=== PATIENT | female | born 1990 | race Caucasian/White ===

== ENCOUNTER 2021-06-19 11:39 | Emergency (ER) | payer OTHER, SELFPAY ==
[2021-06-19 12:11] VITALS: BP 99/61; PULSE 92; RESP 18; TEMP 37.1; O2SAT 96; BMI 26.6
[2021-06-19] MEDS: Lidocaine 4 % Cream KIT 1 APPL TOPICAL (13:34)
--- NOTE | 2021-06-19 13:44 | ED_ITS ---
HPI - Extremity Problem General Chief complaint: Extremity Problem Stated complaint: ARM INFECTION Time Seen by Provider: 06/19/21 13:21 Source: patient and family Mode of arrival: ambulatory Limitations: no limitations History of Present Illness HPI Narrative: Right arm swelling, redness and pain for the last 3 days. She tells me she has a history of recurrent abscesses. She did try to do warm compresses and is draining a little bit but continued swelling and pain. No fevers or chills. She does have a history of IV drug abuse but is currently on methadone and not using any IV drugs Related Data Previous Rx's Medication Instructions Recorded doxycycline monohydrate 100 mg PO BID #20 cap 06/19/21 Allergies Allergy/AdvReac Type Severity Reaction Status Date / Time brompheniramine Allergy Anaphylaxis Verified 06/19/21 12:17 [From Dimetapp (brompheniramine-PPA)] phenylpropanolamine Allergy Anaphylaxis Verified 06/19/21 12:17 [From Dimetapp (brompheniramine-PPA)] Review of Systems Review of Systems: Yes all other systems are reviewed and are negative Constitutional: Constitutional: Reports no additional constitutional complaints, Denies body ache(s), Denies chills, Denies fever(s), Denies headache (s) and Denies weakness Eyes: Eyes: Reports no additional eye complaints and Denies change in vision ENT: Reports system reviewed and no additional complaints, except as documented, Denies dizziness, Denies headache(s), Denies nasal congestion, Denies nasal discharge and Denies neck pain Cardiovascular: Cardiovascular: Reports no additional cardiovascular complaints, Denies chest pain, Denies leg edema and Denies dyspnea Respiratory: Respiratory: Reports no additional respiratory complaints, Denies cough and Denies dyspnea Gastrointestinal: Gastrointestinal: Reports no additional gastrointestinal complaints, Denies abdominal pain, Denies diarrhea, Denies nausea and Denies vomiting Genitourinary: Genitourinary: Reports no additional female genitourinary complaints and Denies urinary incontinence Musculoskeletal: Musculoskeletal: Reports no additional musculoskeletal complaints, Denies back pain, Denies arthralgias, Denies joint swelling, Denies neck pain, Denies numbness and Denies tingling Integumentary/Breasts: Skin/Breast: Reports system reviewed and no additional complaints, except as docu, Reports swelling, Reports erythema and Denies rash Neurologic: Reports system reviewed and no additional complaints, except as documented, Denies Abnormal speech present, Denies dizziness, Denies headache(s), Denies numbness, Denies tingling and Denies weakness PMFSH Past Medical History Attestation statement: The following information was validated with the patient. Source: old records reviewed and nursing notes reviewed Medical History No known health problems Social History Social History Advance Directives: Yes Advance Directives Information Provided: No Advance Directives on File: No Physical Exam Vital Signs: Vital Signs: Last Vital Signs Temp 98.8 F 06/19/21 12:11 Pulse 92 06/19/21 12:11 Resp 18 06/19/21 12:11 BP 99/61 06/19/21 12:11 Pulse Ox 96 06/19/21 12:11 Body Mass Index 26.6 Const: General: cooperative, healthy appearing, comfortable and no acute distress Orientation/consciousness: patient oriented x3 Limitations: no limitations HENMT: Head: Yes normal to inspection Ears: hearing grossly normal bilaterally General nose exam: Normal external nose present Face and sinus: Yes normal facial exam Mouth: Normal oral and palatal mucosa present Throat: Yes posterior oropharynx normal Eyes: General: appearance normal, both eyes and all related structures Pupils: Equal, round and reactive pupils present Neck: Neck: Yes normal visual inspection Chest: Chest palpation & inspection: normal inspection of the chest Resp: Effort & Inspection: normal respiratory effort Auscultation: clear to auscultation bilaterally Cardio: Rate: regular rate Rhythm: regular rhythm Peripheral pulses: Peripheral pulses 2+ throughout GI: Inspection: Yes normal to inspection Palpation (GI): Soft to palpation and nontender Auscultation: normal bowel sounds Back/Spine/Pelvis: Thoracic/Lumbar Spine: thoracic and lumbar spine normal to inspection Skin: General skin exam: no rashes or lesions noted Neuro: General: patient oriented x3, no focal motor deficits and normal sensation to monofilament Cranial nerves: Yes Equal, round and reactive pupils present Cognition (Neuro): normal cognition Speech: No Abnormal speech present Gait exam (Neuro): Normal gait present Motor exam (neuro): 5/5 motor strength present throughout Extrem: Other: To the right forearm there is a central area with an abscess present with induration, fluctuance, warmth and tenderness with surrounding er ythema. The erythema is not circumferential. Distal pulses palpated. Sensation is normal General: Yes normal to inspection Course Course Course Narrative: Right forearm abscess with surrounding cellulitis. Will require I&D, antibiotics for home. 1445-see I&D note.. Packing placed. Patient to return in 48 hours for packing removal and wound check. Reviewed worrisome signs and symptoms such as increasing redness, swelling or fever. Comfortable discharge home Procedures Abscess I/D Site: upper extremity Side (if applicable): right Local Anesthetic: lidocaine 2% Amount of anesthesia used (mL): 3 Technique: incised with blade Sent for culture/gram staining?: No Irrigation: No Packing used?: iodoform MDM - Extremity (Nontraumatic) Medical Records Attestation: I reviewed the patient's medical records. Lab Data Attestation: I reviewed the patient's lab results. Discharge Plan Discharge Clinical Impression: Cellulitis, Abscess Patient Disposition: Home, Self-Care Instructions: Cellulitis (ED), Abscess (ED) Additional Instructions: packing removal 48 hrs Prescriptions: New doxycycline monohydrate 100 mg capsule 100 mg PO BID Qty: 20 RF: 0 Referrals: Physician,Unknown [Primary Care Provider] - 2 days Discharge Date/Time: 06/19/21 14:48
[2021-06-19] MEDS: Lidocaine HCl 2 % MPF 5 ML VIAL SUBCUT (14:16)
== END 2021-06-19 14:48 | disposition home or self-care (01) ==
PROVIDERS: Emergency Provider Emergency Medicine Emergency Medical Services; PCP Internal Medicine
DX: L02.413 Cutaneous abscess of right upper limb (principal); L03.113 Cellulitis of right upper limb; F11.20 Opioid dependence, uncomplicated
CPT/HCPCS: 10060; 99283; 99284

== ENCOUNTER 2021-07-22 15:06 | Emergency (ER) | payer OTHER, MEDICAID, SELFPAY ==
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
[2021-07-22 15:19] VITALS: BP 125/74; BP 135/57; PULSE 60; PULSE 67; RESP 16; TEMP 36.7; O2SAT 100; O2SAT 98; BMI 28.3
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
--- NOTE | 2021-07-22 15:42 | PC.NURSE ---
[facility] AT BEDSIDE REQUESTED BY PT.
[2021-07-22] MEDS: Acetaminophen 325 MG TABLET 650 MG PO (17:03)
[2021-07-22] MEDS: Lidocaine HCl 1 % MPF 5 ML VIAL SUBCUT (17:03)
[2021-07-22 17:06] VITALS: BP 110/63; PULSE 55; RESP 16; O2SAT 97
--- NOTE | 2021-07-22 20:38 | PC.NURSE ---
pt up and ambulates to restroom w/o difficulty. Pt c/o head pain and MD aware. will continue to monitor pt.
[2021-07-22] MEDS: Acetaminophen 325 MG TABLET 975 MG PO (20:45)
--- NOTE | 2021-07-22 20:58 | PC.NURSE ---
PT ACCEPTED AT [facility], THEY WILL ARRANGE FOR TRANSPORT. [phone]
[2021-07-22 21:56] VITALS: BP 112/75; PULSE 78; RESP 16; O2SAT 97
[2021-07-22 22:01] VITALS: RESP 16
--- NOTE | 2021-07-22 22:03 | PC.NURSE ---
this nurse taking over care of pt pt c/o 08/04 headache pain, states the Tylenol given earlier did not help her pain MD (Sherine) notified
[2021-07-22] MEDS: Ketorolac Tromethamine 60 MG/2 ML VIAL IM (22:09)
--- NOTE | 2021-07-22 22:15 | PC.NURSE ---
pt sleeping while sitting up in bed when this nurse walked in to room pt given sandwich, crackers and rebecca nina no distress noted at this time. call lenz in reach.
[2021-07-22 22:32] LABS: COVID-19 Test Negative (Negative)
[2021-07-22 23:50] VITALS: RESP 16
[2021-07-23 02:48] VITALS: PULSE 69; RESP 16; O2SAT 99
[2021-07-23 07:00] VITALS: BP 101/52; PULSE 72; RESP 16; O2SAT 98
--- NOTE | 2021-07-23 07:02 | PC.NURSE ---
pt sleepy but easily arousable, pt reports still having some pain in the back of her head, pain at 7/10. plan for pt to go [facility] this morning but pt is not aware what time
--- NOTE | 2021-07-23 07:45 | PC.NURSE ---
called [facility] and spoked with glenn in regards to the pt's transportation. erin will be reaching out her kosher dietary service supervisor and the kosher dietary service supervisor will call this rn
--- NOTE | 2021-07-23 10:13 | PC.NURSE ---
called [facility] again to get more information about transportation, again was told that the felt finishing supervisor will call back
[2021-07-23 10:25] VITALS: BP 109/67; PULSE 79; RESP 18; O2SAT 96
--- NOTE | 2021-07-23 10:40 | PC.NURSE ---
spoked to the [facility] broadcast field supervisor, they called the taxi and they will be arriving in about 30-45 min
[2021-07-23] MEDS: Ketorolac Tromethamine 15 MG/ML VIAL 30 MG IM (10:42)
== END 2021-07-23 10:50 | disposition home or self-care (01) ==
PROVIDERS: Emergency Medicine Emergency Medical Services; Emergency Provider Emergency Medicine
DX: S01.01XA Laceration without foreign body of scalp, initial encounter (principal); Y04.2XXA Assault by strike against or bumped into by another person, initial encounter; R51.9 Headache, unspecified; Y93.9 Activity, unspecified; Y92.039 Unspecified place in apartment as the place of occurrence of the external cause; Y99.9 Unspecified external cause status; Z72.89 Other problems related to lifestyle; Z63.0 Problems in relationship with spouse or partner
CPT/HCPCS: 12001; 36415; 70450; 71046; 72125; 87635; 96372; 99284; J1885

== ENCOUNTER 2022-03-26 11:49 | Emergency (ER) | payer OTHER, SELFPAY ==
[2022-03-26 13:32] VITALS: PULSE 62; RESP 18; TEMP 36.1; O2SAT 98; BMI 33.3
--- NOTE | 2022-03-26 16:51 | ED.MEDCLEAR ---
HPI - Medical Clearance General Chief complaint: Medical Clearance Stated complaint: med refill Time Seen by Provider: 03/26/22 16:08 Source: patient Mode of arrival: ambulatory Limitations: no limitations History of Present Illness HPI Narrative: 32 y/o female with history of anxiety, depression, PTSD who presents to the ER for medication refills in the setting of moving into the area. She reports moving to [place] from [place] and then here. She has worked to establish care with [facility] and a new PCP, she has an appointment April 05 and June 22 respectively. She ran out of her clonidine, wellbutrin and klonopin 3 days ago. She had left over wellbutrin med at her cousins house so was able to take that this morning. She reports increased anxiety knowing that she does not have an appointment for another week and a half. No N/V/D, +headaches. complaint: other (medication refill) Onset (ago): day(s) Reason for Medical Clearance: medical condition and psychiatric condition Place: home Alleged Intoxication: No Compliant with Home Medications: Yes Associated Symptoms: other (anxiety) Treatments Prior to Arrival: none Related Information Previous Rx's Medication Instructions Recorded doxycycline monohydrate 100 mg 100 mg PO BID #20 cap 06/19/21 capsule bupropion HCl 150 mg 24 hr tablet, 150 mg PO QAM #14 tab 03/26/22 extended release (Wellbutrin XL) clonazepam 1 mg tablet (Klonopin) 1 mg PO DAILY #9 tab 03/26/22 clonidine HCl 0.1 mg tablet 0.1 mg PO BID #20 tab 03/26/22 Allergies Allergy/AdvReac Type Severity Reaction Status Date / Time brompheniramine Allergy Anaphylaxis Verified 07/22/21 15:28 [From Dimetapp (brompheniramine-PPA)] phenylpropanolamine Allergy Anaphylaxis Verified 07/22/21 15:28 [From Dimetapp (brompheniramine-PPA)] Review of Systems Review of Systems: Constitutional: No Fever, No Chills Cardiovascular: No Chest Pain, No SOB Gastrointestinal: No Nausea, No Vomiting, No abdominal Pain Musculoskeletal: No No Myalgias Skin: No Skin Lesions, No rash Neuro: No Weakness, No Dizziness, + Headache Psych: + Anxiety/Panic, No Depression, +Insomnia [facility] Past Medical History Medical History (Updated 03/26/22 @ 17:07 by VISHNU Bronson) Anxiety Depression No known health problems Social History Social History Patient Tobacco Use Status: Current everyday Tobacco user Substance Use Type: IV Drugs Advance Directives: No Advance Directives Information Provided: No Patient : No Physical Exam Vital Signs: Vital Signs: Last Vital Signs Temp 97 F 03/26/22 13:32 Pulse 62 03/26/22 13:32 Resp 18 03/26/22 13:32 Pulse Ox 98 03/26/22 13:32 BMI result Body Mass Index 33.3 Appearance: Alert. Oriented X3. No acute distress. HEENT: normal inspection CVS: Normal heart rate and rhythm. Pulses normal. Respiratory: No respiratory distress. Lungs CTAB Skin: Skin warm and dry. Normal skin color. Normal skin turgor. No rashes. Extremities: normal inspection x4. Neuro: Oriented X 3. No motor deficit. No sensory deficit. Course Course Course Narrative: 32 y/o female with history of anxiety, depression PTSD presenting for medication refill - wellbutrin, clonidine, and klonopin. [employer] reviewed and no Klonopin prescribed since September. She denies this and states she has had it prescribed from [facility] [place]. She denies ETOH or drug use. Discussed risks and benefits of prescribing the above medications, shared decision making had with the patient, will plan to prescribe klonopin 1 mg daily until she can be seen [facility] provider on 04/05. Patient agrees with plan. Stable for d/c home with close outpatient follow up. Discharge Plan Discharge Clinical Impression: Anxiety, Depression Patient Disposition: Home, Self-Care Instructions: Anxiety (ED) Additional Instructions: Take all of your medications as prescribed and follow up with all of your providers as scheduled. If you develop new or worsening symptoms call 911 or come back to the ER for further evaluation. Prescriptions: New bupropion HCl [Wellbutrin XL] 150 mg tablet extended release 24 hr 150 mg PO QAM Qty: 14 0RF clonidine HCl 0.1 mg tablet 0.1 mg PO BID Qty: 20 0RF clonazepam [Klonopin] 1 mg tablet 1 mg PO DAILY Qty: 9 0RF No Action doxycycline monohydrate 100 mg capsule 100 mg PO BID Qty: 20 0RF
[2022-03-26] MEDS: clonazePAM 1 MG TABLET PO (17:25)
== END 2022-03-26 17:29 | disposition home or self-care (01) ==
PROVIDERS: Emergency Provider Internal Medicine
DX: F33.1 Major depressive disorder, recurrent, moderate (principal); F41.1 Generalized anxiety disorder; F43.0 Acute stress reaction; F17.200 Nicotine dependence, unspecified, uncomplicated; Z71.6 Tobacco abuse counseling; Z76.0 Encounter for issue of repeat prescription; Z79.899 Other long term (current) drug therapy
CPT/HCPCS: 99283

== ENCOUNTER 2024-02-01 05:13 | Emergency (ER) | payer OTHER, SELFPAY ==
[2024-02-01 05:24] VITALS: BP 134/92; BP 142/96; PULSE 110; PULSE 95; RESP 18; TEMP 36.6; O2SAT 96; O2SAT 98; BMI 30.9
[2024-02-01 06:00] VITALS: BP 105/65; PULSE 75; RESP 18; TEMP 37.1; O2SAT 97
--- NOTE | 2024-02-01 06:06 | PC.NURSE ---
Pt repeatedly putting exploration manager light asking for food. Pt repeatedly reminded that she needs to see a provider first. Does not show evidence of learning.
--- NOTE | 2024-02-01 06:22 | PC.NURSE ---
pillow and warm blanket provided for comfort.
--- NOTE | 2024-02-01 07:07 | ED.ANXIETY ---
HPI - Anxiety General Chief Complaint: Anxiety Stated Complaint: anxiety Time Seen by Provider: 02/01/24 06:54 Source: patient and police Mode of arrival: other (Police custody) Limitations: no limitations History of Present Illness HPI narrative: Patient is a 33-year-old female who presents emergency department in police custody. At the time my initial examination she is noticed to be asleep, arouses to verbal stimuli. Frequently falling back to sleep while answering questions. She states that she would like to be seen today because she has been having increasing anxiety recently requesting a prescription for Xanax or Klonopin as this has helped her anxiety in the past. She reports that she has not been prescribed this for quite some time. When asked whether she has any additional complaints aside from her anxiety she reports no. She had initially endorsed back pain to nursing staff but at this time she denies any pain to myself. She also states she is hungry as she has not eaten in 2 days and would like something to eat. Related Data Previous Rx's Medication Instructions Recorded doxycycline monohydrate 100 mg 100 mg PO BID #20 caps 06/19/21 capsule bupropion HCl 150 mg 24 hr tablet, 150 mg PO QAM #14 tabs 03/26/22 extended release clonazepam 1 mg tablet 1 mg PO BID #8 tabs 03/26/22 clonidine HCl 0.1 mg tablet 0.1 mg PO BID #20 tabs 03/26/22 Allergies Allergy/AdvReac Type Severity Reaction Status Date / Time brompheniramine Allergy Anaphylaxis Verified 02/01/24 05:24 [From Dimetapp (brompheniramine-PPA)] phenylpropanolamine Allergy Anaphylaxis Verified 02/01/24 05:24 [From Dimetapp (brompheniramine-PPA)] [facility] Past Medical History Medical History (Updated 02/01/24 @ 07:27 by Charisse Coyle CNP) Depression Anxiety No known health problems Social History Social History Patient Tobacco Use Status: Current everyday Tobacco user Substance Use Type: IV Drugs Advance Directives: No Physical Exam Vital Signs: Vital Signs: Last Vital Signs Temp 97.9 F 02/01/24 05:24 Pulse 95 02/01/24 05:24 Resp 18 02/01/24 05:24 BP 134/92 H 02/01/24 05:24 Pulse Ox 96 02/01/24 05:24 O2 Del Method Room Air 02/01/24 05:24 BMI result Body Mass Index 30.9 Medical Decision Making Medical Decision Making [facility] Narrative: Patient is a 33-year-old female past medical history of anxiety, depression, PTSD, substance use disorder presenting to the emergency department in police custody requesting assistance with management of her anxiety expressed hunger. She was provided with something to eat. She was offered hydroxyzine for anxiety and she declines stating this is never helped her in the past. She did become quite upset when I advised her that with not provide prescription for benzodiazepines. She was advised that she should follow-up outpatient with her psychiatric/primary care provider. Physical examination is benign. At this time feel that she is stable for discharge. Differential Diagnosis Differential Diagnoses: The differential diagnosis associated with the presentation includes (Anxiety, PTSD, substance use disorder) Admission/Observation Consideration of admission/observation: Escalation of care including admission/observation considered (See narrative above) Independent Historian Clinical information obtained from an independent historian. History obtained from or confirmed by: Other (Law enforcement) Prescription Management I considered prescription management with: Other (See narrative above offered hydroxyzine patient declined) Social Determinants Patient?s care significantly limited by Social Determinants of Health including: Other Social Determinant of Health (Substance use disorder) Discharge Plan Discharge Clinical Impression: Anxiety Patient Disposition: Home, Self-Care Instructions: Anxiety (ED) Additional Instructions: You were offered a prescription for hydroxyzine to help with her anxiety however declined. It is recommended that you follow-up with a therapist, psychiatrist, primary care provider regarding management of your anxiety. Prescriptions: No Action doxycycline monohydrate 100 mg capsule 100 mg PO BID Qty: 20 0RF clonidine HCl 0.1 mg tablet 0.1 mg PO BID Qty: 20 0RF Rx Instructions: Patient can partially filled upon request clonazepam 1 mg tablet 1 mg PO BID Qty: 8 0RF Rx Instructions: patient can partially filled upon request bupropion HCl 150 mg tablet extended release 24 hr 150 mg PO QAM Qty: 14 0RF Rx Instructions: patient can partially filled upon request Referrals: ED Physician,Generic [Physician] -
--- NOTE | 2024-02-01 07:20 | PC.NURSE ---
Alert and responsive, argumentative with provider. Flood and fluids provided per patients request , vss. [place] [employer] remains at bedside
== END 2024-02-01 08:19 | disposition home or self-care (01) ==
PROVIDERS: Emergency Provider Student in an Organized Health Care Education/Training Program
DX: F41.9 Anxiety disorder, unspecified (principal); F19.90 Other psychoactive substance use, unspecified, uncomplicated; F43.10 Post-traumatic stress disorder, unspecified; Z65.3 Problems related to other legal circumstances
CPT/HCPCS: 99284

== ENCOUNTER 2024-03-22 15:23 | Emergency (ER) | payer SELFPAY ==
[2024-03-22 15:31] VITALS: BP 141/93; PULSE 69; PULSE 76; RESP 18; TEMP 36.9; O2SAT 97; O2SAT 99; BMI 29.3
--- NOTE | 2024-03-22 16:17 | ED.GENADULT ---
HPI - General Adult General Chief complaint: Overdose Stated complaint: OVERDOSE Time Seen by Provider: 03/22/24 16:10 Source: patient and EMS Mode of arrival: EMS Limitations: no limitations History of Present Illness HPI narrative: Patient is a 34 year old assigned female at with a history of opiate abuse presenting to the emergency department today after a drug overdose. EMS states that the patient was found unresponsive, her boyfriend gave her narcan but it didn't work, EMS gave additional narcan and she woke up. Patient denies any dizziness, lightheadedness, abdominal pain, nausea, vomiting, fever, chills, blurry vision, double vision, loss of vision, chest pain, difficulty breathing, shortness of breath, back pain, night sweats, pain with urination, increased urinary frequency, increased urinary urgency, blood in her urine or stool, syncope or a near syncopal episode, recent trauma or falls, bowel incontinence, bladder incontinence, bowel retention, bladder retention, or any other complaints at this time. Relieving factors: none Exacerbating factors: none Associated symptoms: denies other symptoms Treatments prior to arrival: none Related Data Previous Rx's ?Medication ?Instructions ?Recorded doxycycline monohydrate 100 mg 100 mg PO BID #20 caps 06/19/21 capsule bupropion HCl 150 mg 24 hr tablet, 150 mg PO QAM #14 tabs 03/26/22 extended release clonazepam 1 mg tablet 1 mg PO BID #8 tabs 03/26/22 clonidine HCl 0.1 mg tablet 0.1 mg PO BID #20 tabs 03/26/22 Allergies Allergy/AdvReac Type Severity Reaction Status Date / Time brompheniramine Allergy Anaphylaxis Verified 03/22/24 15:39 [From Dimetapp (brompheniramine-PPA)] phenylpropanolamine Allergy Anaphylaxis Verified 03/22/24 15:39 [From Dimetapp (brompheniramine-PPA)] Review of Systems Constitutional: Constitutional: Reports no additional constitutional complaints, Denies chills, Denies fever(s) and Denies night sweats Eyes: Eyes: Reports no additional eye complaints, Denies blurry vision, Denies change in vision, Denies diplopia, Denies eye discharge, Denies loss of vision and Denies eye pain ENT: Denies dizziness Cardiovascular: Cardiovascular: Reports no additional cardiovascular complaints, Denies chest pain, Denies lightheadedness, Denies Loss of Consciousness and Denies dyspnea Respiratory: Respiratory: Reports no additional respiratory complaints and Denies dyspnea Gastrointestinal: Gastrointestinal: Reports no additional gastrointestinal complaints, Denies abdominal pain, Denies melena, Denies hematochezia, Denies change in bowel habits and Denies change in stool character Genitourinary: Genitourinary: Denies hematuria, Denies urinary frequency, Denies dysuria, Denies urinary incontinence, Denies urinary hesitancy and Denies urinary urgency Musculoskeletal: Musculoskeletal: Reports no additional musculoskeletal complaints, Denies numbness and Denies tingling Neurologic: Denies dizziness, Denies loss of vision, Denies numbness and Denies tingling Psychiatric: Psychiatric: Reports no additional psychiatric complaints Endocrine: Endocrine: Reports no additional endocrine complaints Hematologic/Lymphatic: Hematologic/Lymphatic: Reports no additional hematologic/lymphatic complaints Allergic/Immunologic: Allergic/Immunologic: Reports no additional allergic/immunologic complaints PMFSH Past Medical History Attestation statement: The following information was validated with the patient. Source: old records reviewed and nursing notes reviewed Medical History Depression Anxiety No known health problems Social History Social History Patient Tobacco Use Status: Current everyday Tobacco user Substance Use Type: IV Drugs Advance Directives: No Advance Directives Information Provided: No Do you have a plan to hurt others: No Plan Physical Exam ED Vital Signs: Vital Signs - 24 hr 03/22/24 15:31 03/22/24 17:03 03/22/24 19:38 Temperature 98.4 F Pulse Rate 69 64 71 Respiratory Rate 18 16 15 Blood Pressure 141/93 H 110/60 Pulse Oximetry 99 100 100 Oxygen Delivery Method Room Air Room Air Room Air 03/22/24 22:16 Temperature 98.3 F Pulse Rate 71 Respiratory Rate 16 Blood Pressure 123/79 Pulse Oximetry 99 Oxygen Delivery Method Room Air BMI result Body Mass Index 29.3 Const General: cooperative, no acute distress, alert and awake Nutritional Appearance: well nourished Orientation/consciousness: patient oriented x3 Limitations: no limitations HENMT Head: Yes normal to inspection and Yes atraumatic Ears: hearing grossly normal bilaterally and external ears normal General nose exam: Normal external nose present, no nasal discharge noted and no epistaxis Face and sinus: Yes normal facial exam, No abrasion and No laceration Mouth: Normal oral and palatal mucosa present, no drooling and no muffled voice Eyes General: appearance normal, both eyes and all related structures Periorbital: periorbital findings normal Eyelids: Yes eyelids normal Conjunctivae: conjunctivae normal Pupils: Equal, round and reactive pupils present EOM: EOMs intact bilaterally Neck Neck: Yes normal visual inspection, Yes full ROM and Yes no lymphadenopathy Chest Chest palpation & inspection: normal inspection of the chest Resp Effort & Inspection: normal respiratory effort and able to speak in complete sentences GI Inspection: Yes normal to inspection Neuro General: patient oriented x3 and moves all extremities Cranial nerves: Yes Equal, round and reactive pupils present Cognition (Neuro): normal cognition Motor exam (neuro): 5/5 motor strength present throughout Sensory Exam: Normal double simultaneous stimulation for sensation Coordination: [id number] test normal Extrem General: Yes normal to inspection, Yes full ROM and Yes capillary refill normal Psych Appearance: grossly normal Mental Status: mental status grossly normal Affect: normal affect Attitude: cooperative Thought process: Normal thought process present Thought content: Normal thought content present Insight: Good insight present (Psych) Medications Administered Discontinued Medications Generic Name Dose Route Start Last Admin Trade Name Freq PRN Reason Stop Dose Admin Naloxone HCl 8 mg 03/22/24 20:01 03/22/24 22:56 Naloxone Hcl Nasal Take Home 4 Mg [facility] NOSTRILALT 03/22/24 20:02 8 mg ONCE ONE Administration Medical Decision Making Medical Decision Making [facility] Narrative: Patient is a 34 year old assigned female at with a history of opiate use presenting to the emergency department today after receiving narcan post overdose. Patient's physical exam was unremarkable. I explained my physical exam findings to the patient. I answered all questions asked by the patient. Patient was resting in the department for quite some time. Patient's boyfriend came to visit and the patient awoke, requesting a dose of methadone and to be discharged. Patient's boyfriend was then caught in the bathroom using heroin and had multiple hospital items in his possession. Patient then declined a methadone dose and requested to be discharged immediately. I offered to have the patient stay overnight to converse with the addiction team however, she declined. Patient was given take home narcan. Patient was in physician observation while resting in the department. Physician observation ended at 2258. Patient was in physician observation for a total of 6 hours and 41 minutes. During observation it was determined that the patient did not meet criteria for hospitalization. I stressed the importance of the patient taking her medication as prescribed. I stressed the importance of the patient following up with her primary care provider and if she changes her mind about recovery, the [facility] center. I stressed the importance of the patient returning to the emergency department immediately if her symptoms were to worsen or if she were to develop any dizziness, shortness of breath, difficulty breathing, chest pain, blurry vision, loss of vision, nausea, vomiting, abdominal pain, fever, chills, back pain, or any other complaints. Patient verbalized agreement and understanding with this treatment plan and discharge. Differential Diagnosis Differential Diagnoses: The differential diagnosis associated with the presentation includes Opiate use Opiate abuse Opiate overdose Admission/Observation Consideration of admission/observation: Escalation of care including admission/observation considered Patient would have been admitted to the hospital had her work up had any findings where hospital admission was appropriate and her clinical presentation warranted hospital admission. Independent Historian Clinical information obtained from an independent historian. History obtained from or confirmed by: EMS (EMS provided additional history and confirmed the history provided by the patient.) Discharge Plan Discharge Clinical Impression: Drug overdose Patient Disposition: Home, Self-Care Instructions: Adult Overdose (ED) Additional Instructions: Please refrain from opiate use. Follow up with a primary care provider and the [facility] for addiction help. Return to the emergency department immediately if your symptoms worsen or if you develop any dizziness, shortness of breath, difficulty breathing, chest pain, blurry vision, loss of vision, nausea, vomiting, abdominal pain, fever, chills, back pain, or any other complaints. Prescriptions: No Action doxycycline monohydrate 100 mg capsule 100 mg PO BID Qty: 20 0RF clonidine HCl 0.1 mg tablet 0.1 mg PO BID Qty: 20 0RF Rx Instructions: Patient can partially filled upon request clonazepam 1 mg tablet 1 mg PO BID Qty: 8 0RF Rx Instructions: patient can partially filled upon request bupropion HCl 150 mg tablet extended release 24 hr 150 mg PO QAM Qty: 14 0RF Rx Instructions: patient can partially filled upon request Referrals: [facility] [Provider Group] (Call to establish and follow up for addiction help. ) [facility] [place] Family Medicine [Provider Group] (Call to establish and follow up with a primary care provider. If you already have a primary care provider, please follow up with them.) [facility] [Provider Group] [facility] [Provider Group] Print Language: Georgian
--- NOTE | 2024-03-22 16:22 | PC.NURSE ---
patient has two episodes of incontinence of diarrhea, patient cleaned up x2 new linens and gowns. patient is back to sleep, resp equal and unlabored, on pulse ox 100% on room air.
--- NOTE | 2024-03-22 16:49 | PC.NURSE ---
patient significant other called, left phone number joey Parekh [phone] stated he has her bag and phone, and when she is d/c he will come get her.
[2024-03-22 17:03] VITALS: PULSE 64; RESP 16; O2SAT 100
[2024-03-22 19:38] VITALS: BP 110/60; PULSE 71; RESP 15; O2SAT 100
--- NOTE | 2024-03-22 19:39 | PC.NURSE ---
PT DENIES SI/HI. REPORTS ACCIDENTAL OD. PT IS AXOX4. REFUSING TO KEEP CAPNOGRAPHY ON FACE. SATS 100% ON RA. VSS. PT PREVIOUS CHANGED OVER BY SECURITY BELONGINGS IN . NAD. CALL LINDER WITHIN REACH.
--- NOTE | 2024-03-22 20:01 | PC.NURSE ---
PT AMBULATED TO BATHROOM WITH STEADY GAIT. NEW GOWN/HOSPITAL PANTS PROVIDED. PT IS AXOX4. ASKING FOR METHADONE. OTHERWISE STATES SHE FEELS BETTER. PT DENIES CP/SOB/N/V. PT REQUESTING FOOD/SNACKS.
[2024-03-22 22:16] VITALS: BP 123/79; PULSE 71; RESP 16; TEMP 36.8; O2SAT 99
[2024-03-22] MEDS: Naloxone HCl Nasal TAKE HOME 4 MG SPRAY 8 MG NOSTRILALT (22:56)
[2024-03-22 23:00] VITALS: BP 123/79; PULSE 71; RESP 16; TEMP 36.8; O2SAT 99
== END 2024-03-22 23:00 | disposition home or self-care (01) ==
PROVIDERS: Emergency Provider Internal Medicine
DX: T50.901A Poisoning by unspecified drugs, medicaments and biological substances, accidental (unintentional), initial encounter (principal); F11.10 Opioid abuse, uncomplicated; Y92.9 Unspecified place or not applicable
CPT/HCPCS: 99284

== ENCOUNTER 2024-03-24 07:30 | Emergency (ER) | payer SELFPAY ==
[2024-03-24 07:38] VITALS: BP 123/82; PULSE 86; O2SAT 98
[2024-03-24 07:52] VITALS: BP 116/80; PULSE 72; RESP 18; TEMP 36.9; O2SAT 99; BMI 30.2
--- NOTE | 2024-03-24 08:35 | ED_ITS ---
HPI - Overdose General Chief Complaint: Overdose Stated Complaint: HEROIN OD,NARCAN GIVEN W/GOOD EFFECT PER EMS Time Seen by Provider: 03/24/24 07:41 Source: patient and EMS Mode of arrival: EMS Limitations: no limitations History of Present Illness HPI Narrative: 34-year-old female history of opiate abuse presenting to the emergency department after a drug overdose, patient was given at the scene 12 mg of intran [place]ia [place] Narcan with good effect on EMS arrival patient was awake and vomiting. Patient declined SI or HI or visual hallucination. Related Data Previous Rx's ?Medication ?Instructions ?Recorded doxycycline monohydrate 100 mg 100 mg PO BID #20 caps 06/19/21 capsule bupropion HCl 150 mg 24 hr tablet, 150 mg PO QAM #14 tabs 03/26/22 extended release clonazepam 1 mg tablet 1 mg PO BID #8 tabs 03/26/22 clonidine HCl 0.1 mg tablet 0.1 mg PO BID #20 tabs 03/26/22 Allergies Allergy/AdvReac Type Severity Reaction Status Date / Time brompheniramine Allergy Anaphylaxis Verified 03/24/24 07:59 [From Dimetapp (brompheniramine-PPA)] phenylpropanolamine Allergy Anaphylaxis Verified 03/24/24 07:59 [From Dimetapp (brompheniramine-PPA)] Review of Systems Review of Systems: All other systems are reviewed and are negative Constitutional: Reports as per HPI and Reports no additional constitutional complaints Eyes: Reports as per HPI and Reports no additional eye complaints Reports system reviewed and no additional complaints, except as documented Cardiovascular: Reports as per HPI and Reports no additional cardiovascular complaints Respiratory: Reports as per HPI and Reports no additional respiratory complaints Gastrointestinal: Reports as per HPI and Reports no additional gastrointestinal complaints Genitourinary: Reports no additional female genitourinary complaints Musculoskeletal: Reports no additional musculoskeletal complaints Skin/Breast: Reports system reviewed and no additional complaints, except as docu Psychiatric: Reports no additional psychiatric complaints Endocrine: Reports no additional endocrine complaints Hematologic/Lymphatic: Reports no additional hematologic/lymphatic complaints Allergic/Immunologic: Reports no additional allergic/immunologic complaints Reports system reviewed and no additional complaints, except as documented and Reports Abnormal speech present PMFSH Past Medical History Medical History Depression Anxiety No known health problems Social History Social History Patient Tobacco Use Status: Current everyday Tobacco user Substance Use Type: IV Drugs Advance Directives: No Physical Exam Vital Signs: Vital Signs: Last Vital Signs Temp 98.4 F 03/24/24 07:52 Pulse 80 03/24/24 09:10 Resp 22 H 03/24/24 09:10 BP 141/75 H 03/24/24 09:10 Pulse Ox 99 03/24/24 09:10 O2 Del Method Room Air 03/24/24 09:10 BMI result Body Mass Index 30.2 Vital signs have been reviewed and appear to be correct. Blood pressure elevated. Heart rate normal. Respiratory rate normal. Temperature normal. Oxygen saturation normal. Appearance: Alert. Oriented X3. No acute distress. Head: Normal external exam. Normocephalic. Atraumatic. No Wells signs noted. No raccoon eyes noted Eyes: PERRLA. EOMI. Conjunctiva and sclera normal. Eyelids normal. ENT: TM's Normal. Pharynx normal. Uvula midline. Moist mucous membranes. No trismus noted. No drooling noted. No muffled voice noted. Neck: Normal inspection. Neck supple. FROM. No adenopathy. Thyroid Normal. No meningeal signs. No neck mass noted. CVS: Normal heart rate and rhythm. Heart sound normal. No murmurs noted. Pulses normal throughout. Respiratory: No respiratory distress. Painless inspiration. Breath sounds normal. No wheezes/rales/rhonchi noted. Chest nontender. No accessory muscle usage noted or decreased air movement noted. Abdomen: Soft and nontender. Bowel sounds normal in all 4 quadrants. No distention noted. No organomegaly noted. No visible injury noted. Back: No CVA tenderness. Full range of motion noted. Skin: Skin warm and dry. Normal skin color. Normal skin turgor. No rashes/lesions/lacerations noted. Extremities: No lower extremity edema. Extremities exhibit normal range of motion. Extremities nontender. Neuro: Oriented X 3. Cranial nerve exam: II-XII are grossly intact No motor deficit. No sensory deficit. Reflexes normal. Course Reevaluation(s) Reevaluation #1: Patient is AAO x4, has been awake in the emergency department for the past hour with O2 sat of 99%, patient admitted to use 1 bag of heroin IV and was given Narcan by her boyfriend. Patient declined any SI or HI, no hallucination patient wanted to be discharged now, refused to wait for addiction medicine consultation, patient was provided Narcan to be discharged with. Time: 11:56 Medical Decision Making Differential Diagnosis Differential Diagnoses: The differential diagnosis associated with the presentation includes (Narcotic overdose, SI, HI, hallucination, acute respiratory suppression secondary to narcotic use.) Admission/Observation Consideration of admission/observation: Escalation of care including admission/observation considered Discharge Plan Discharge Clinical Impression: Accidental overdose Patient Disposition: Home, Self-Care Instructions: Polysubstance Abuse (ED) Prescriptions: No Action doxycycline monohydrate 100 mg capsule 100 mg PO BID Qty: 20 0RF clonidine HCl 0.1 mg tablet 0.1 mg PO BID Qty: 20 0RF Rx Instructions: Patient can partially filled upon request clonazepam 1 mg tablet 1 mg PO BID Qty: 8 0RF Rx Instructions: patient can partially filled upon request bupropion HCl 150 mg tablet extended release 24 hr 150 mg PO QAM Qty: 14 0RF Rx Instructions: patient can partially filled upon request Print Language: Chilean
[2024-03-24 09:10] VITALS: BP 141/75; PULSE 80; RESP 22; O2SAT 99
--- NOTE | 2024-03-24 10:21 | MHC.RECOVRN ---
Attempted to meet with pt in ED6 after pt presented to ED after overdose. Pt laying in bed, asleep, very briefly wakes to voice. Pts pupils dilated, reports she feels cold, and quickly falls back to sleep. Unable to engage in further conversation at this time.
--- NOTE | 2024-03-24 11:40 | PC.NURSE ---
patient service technician pst notified nurse that pt wishes to go home- MD Wong notified, pt requests crackers and gingerale
[2024-03-24 12:05] VITALS: BP 121/74; PULSE 81; RESP 16; TEMP 37; O2SAT 98
[2024-03-24] MEDS: Naloxone HCl Nasal TAKE HOME 4 MG SPRAY 8 MG NOSTRILALT (12:07)
[2024-03-24 12:21] VITALS: BP 121/74; PULSE 81; RESP 16; TEMP 37; O2SAT 98
== END 2024-03-24 12:22 | disposition home or self-care (01) ==
PROVIDERS: Emergency Provider Emergency Medicine
DX: T40.1X1A Poisoning by heroin, accidental (unintentional), initial encounter (principal); F11.10 Opioid abuse, uncomplicated; Y92.9 Unspecified place or not applicable
CPT/HCPCS: 99284

== ENCOUNTER 2024-04-17 10:46 | Emergency (ER) | payer SELFPAY ==
[2024-04-17 10:58] VITALS: BP 138/76; O2SAT 97
[2024-04-17 11:00] VITALS: BP 126/92; PULSE 94; RESP 22; TEMP 36.6; O2SAT 97
[2024-04-17 11:05] VITALS: BMI 27.3
--- NOTE | 2024-04-17 11:14 | ED_ITS ---
HPI - General Adult General Chief complaint: Overdose Stated complaint: OPIOD USE Time Seen by Provider: 04/17/24 11:01 Source: patient Mode of arrival: ambulatory Limitations: no limitations History of Present Illness ED Provider: VISHNU Otto HPI narrative: This is a 34 year old female with a PMH of depression and anxiety presents to the ED via amblance for heroin overdose per EMS reports. Also per EMS, 4mg Narcan given prior to their arrival. Patient is uncooperative and a poor historian, rocking back and forth on stretcher and unwilling to answer questions. History of previous overdoses. Related Data Previous Rx's ?Medication ?Instructions ?Recorded doxycycline monohydrate 100 mg 100 mg PO BID #20 caps 06/19/21 capsule bupropion HCl 150 mg 24 hr tablet, 150 mg PO QAM #14 tabs 03/26/22 extended release clonazepam 1 mg tablet 1 mg PO BID #8 tabs 03/26/22 clonidine HCl 0.1 mg tablet 0.1 mg PO BID #20 tabs 03/26/22 Allergies Allergy/AdvReac Type Severity Reaction Status Date / Time brompheniramine Allergy Anaphylaxis Verified 04/17/24 11:06 [From Dimetapp (brompheniramine-PPA)] phenylpropanolamine Allergy Anaphylaxis Verified 04/17/24 11:06 [From Dimetapp (brompheniramine-PPA)] Review of Systems 2 Review of Systems: Yes all other systems are reviewed and are negative PMFSH Past Medical History Attestation statement: The following information was validated with the patient. Source: old records reviewed and nursing notes reviewed Medical History Depression Anxiety No known health problems Social History Social History Patient Tobacco Use Status: Current everyday Tobacco user Use of substances other than those prescribed or required for medical reasons: Yes Substance Use Type: Heroin Advance Directives: No Do you have a plan to hurt others: No Plan Physical Exam ED Vital Signs: Vital Signs - 24 hr 04/17/24 11:00 04/17/24 12:43 04/17/24 14:33 Temperature 97.8 F 99.1 F 98.6 F Pulse Rate 94 84 79 Respiratory Rate 22 H 14 18 Blood Pressure 126/92 H 134/78 120/78 Pulse Oximetry 97 98 99 Oxygen Delivery Method Room Air Room Air Room Air BMI result Body Mass Index 27.3 vss. Patient unwilling to participate in physical exam. Rocking back and forth on stretcher and will not answer questions or allow examination. Appearance: Alert.? Oriented X3.? Rocking back and forth on exam table. Head: Normocephalic, atraumatic, no step-offs or deformities Eyes: Pupils equal, round and reactive to light.? Neck: Normal inspection.? Neck supple.? CVS: Normal heart rate and rhythm.? Pulses normal.? Respiratory: No respiratory distress.?Unlabored breathing. Skin: Skin warm and dry.? Normal skin color.? Normal skin turgor.? Extremities: No lower extremity edema.? No calf ttp. Neuro: Awake and alert, sensory intact. Ambulating with steady gait normal coordination. Normal [id number]. Course Reevaluation(s) Reevaluation #1: Patient now agreeable to exam. Awake, oriented x3. Tells me that she injected 1 bag of heroin, this was an accidental overdose not suicidal not homicidal. Denies medical complaints at this time. She was given information on detox is not ready to go at this time however will take information. No clinical signs of psychosis. Patient would like to leave whenever possible. She does deny trauma no head strike no loss of consciousness. Appearance: Alert.? Oriented X3.? No acute distress.? Head: Normocephalic, atraumatic, no step-offs or deformities Eyes: Pupils equal, round and reactive to light.? ENT: Pharynx normal.? Neck: Normal inspection.? Neck supple.? CVS: Normal heart rate and rhythm.? Pulses normal.? Respiratory: No respiratory distress.? Breath sounds normal.? Abdomen: Soft and nontender.? Skin: Skin warm and dry.? Normal skin color.? Normal skin turgor.? Extremities: No lower extremity edema.? No calf ttp. 5/5 strength to bilateral upper and lower extremities Back: No midline tenderness, no C-spine tenderness, full range of motion, no CVA tenderness bilaterally Neuro: Oriented X 3.? No motor deficit.? No sensory deficit. CN 2-12 intact Time: 14:51 Reevaluation #2: Patient doing better. Will discharge her home with home Narcan. Educated patient on diagnosis and treatment plan, answered all question, patient verbalizes understanding. At this time patient will be discharged home, advised to return with new or worsening symptoms. Educated on worrisome signs and symptoms and when to return. At this time I feel comfortable discharge home. Time: 14:52 Medical Decision Making Medical Decision Making [facility] Narrative: 1115 34 year old female presenting via EMS for a heroin overdose. 4mg Narcan given prior to arrival. PE: Awake and alert, unlabored breathing. Unwilling to participate in physical exam. Rocking back and forth on stretcher. Differential: Heroin overdose vs opioid overdose vs withdrawal. Unlikely encephalitis/meningitis. Plan: CBC, CMP, drug screen, salicylates, acetominopehn, ethanol, UA, safety every 15 mins, care team consult. Differential Diagnosis Differential Diagnoses: The differential diagnosis associated with the presentation includes (Heroin overdose vs opioid overdose vs withdrawal. Unlikely encephalitis/meningitis. ) Lab Data [facility] Lab Attestation statement: I reviewed the patient's lab results. 04/17/24 12:41 04/17/24 12:41 Labs: Lab Results 04/17/24 Range/Units 12:41 WBC 7.0 (4.8-10.8) X10*3/uL RBC 4.80 (4.20-5.50) X10*6/uL Hgb 12.6 (12.0-16.0) g/dl Hct 40.2 (37.0-47.0) % MCV 83.8 (80.0-98.0) fL MCH 26.3 L (27.0-33.0) pg MCHC 31.3 (31.0-35.0) g/dl RDW 17.2 H (11.0-16.0) % Plt Count 142 L (160-400) X10*3/uL MPV 10.6 (9.4-12.3) fL Immature Gran % (Auto) 0.3 (0.0-0.4) % Neut % (Auto) 76.3 H (45-73) % Lymph % (Auto) 16.5 L (20-40) % Rowan % (Auto) 5.3 (2-11) % Eos % (Auto) 0.9 (0-4) % Baso % (Auto) 0.7 (0-2) % Lymph # (Auto) 1.2 (1.2-4.9) X10*3/uL Rowan # (Auto) 0.4 (0.1-1.2) X10*3/uL Eos # (Auto) 0.1 (0.0-0.4) X10*3/uL Baso # (Auto) 0.1 (0.0-0.2) X10*3/uL Abs Immat Gran (auto) 0.02 (0.00-0.03) X10*3/uL Absolute Neuts (auto) 5.4 (2.0-8.3) x10*3/uL Absolute Nucleated RBC 0.000 (0.0-0.012) X10*3/uL Nucleated RBC % (auto) 0.0 (0.0-0.2) /100WBC Sodium 140 (135-145) mmol/L Potassium 3.7 (3.3-5.1) mmol/L Chloride 108 (96-108) mmol/L Carbon Dioxide 24 (22-29) mmol/L Anion Gap 12 (12-20) BUN 18 H (9-16) mg/dL Creatinine 0.96 (0.5-1.4) mg/dL Estim Creat Clear Calc 100.3 Estimated GFR > 60 Random Glucose 89 (60-115) mg/dL Calcium 9.8 (8.4-10.2) mg/dL Magnesium 2.0 (1.6-2.6) mg/dL Total Bilirubin 0.8 (0.0-1.0) mg/dL AST 24 (5-31) U/L ALT 13 (0-31) U/L Alkaline Phosphatase 58 (39-117) U/L Total Protein 8.1 H (6.5-8.0) g/dL Albumin 4.1 (3.5-5.0) g/dL Salicylates < 5.0 L (15-30) mg/dL Acetaminophen < 3 (<30) mcg/mL Ethyl Alcohol < 10 mg/dL External Record Review External record reviewed: Outpatient record, Prior outpatient labs and Prior outpatient radiology Chronic Conditions Patient?s care impacted by: Other (Anxiety, depression) Critical Care Time Critical Care Time Critical Care Time: No Discharge Plan Discharge Clinical Impression: Drug overdose Patient Disposition: Home, Self-Care Instructions: Adult Overdose (ED) Additional Instructions: Take your medications as prescribed. If you were prescribed antibiotics today, it is important that you take your medication to their entirety, do not skip any doses, do not finish them early. Follow-up with your primary care provider this week. Return to the emergency department with new or worsening symptoms. Such as fevers, chills, chest pain, shortness of breath, nausea, vomiting, dizziness, headache, vision changes, lethargy In case of emergency call 911 Drugs can kill you. Stop using them. Allison has been given 2. This can save her life. Prescriptions: No Action doxycycline monohydrate 100 mg capsule 100 mg PO BID Qty: 20 0RF clonidine HCl 0.1 mg tablet 0.1 mg PO BID Qty: 20 0RF Rx Instructions: Patient can partially filled upon request clonazepam 1 mg tablet 1 mg PO BID Qty: 8 0RF Rx Instructions: patient can partially filled upon request bupropion HCl 150 mg tablet extended release 24 hr 150 mg PO QAM Qty: 14 0RF Rx Instructions: patient can partially filled upon request Referrals: Physician,None [Primary Care Provider] - 2 days Stand Alone Forms: Work/School Release Print Language: Bahamian
--- NOTE | 2024-04-17 12:30 | PC.NURSE ---
Assumed care of this patient at 1100, patient changed over into hospital attire with security, sleeping on stretcher, not answering questions by provider/this RN, lab work to be drawn, VS WNL.
[2024-04-17 12:43] VITALS: BP 134/78; PULSE 84; RESP 14; TEMP 37.3; O2SAT 98
[2024-04-17 12:44] LABS: MANUAL DIFF FLAG NO
[2024-04-17 12:45] LABS: Basophils Absolute Auto 0.1 X10*3/uL (0.0-0.2); Basophils Percent Auto 0.7 % (0-2); Eosinophils Absolute Auto 0.1 X10*3/uL (0.0-0.4); Eosinophils Percent Auto 0.9 % (0-4); Hematocrit 40.2 % (37.0-47.0); Hemoglobin 12.6 g/dl (12.0-16.0); Imm Gran Abs Auto 0.02 X10*3/uL (0.00-0.03); Imm Gran Pct Auto 0.3 % (0.0-0.4); Lymphocytes Absolute Auto 1.2 X10*3/uL (1.2-4.9); Lymphocytes Percent Auto 16.5 % (20-40); Mean Corpuscular HGB Conc 31.3 g/dl (31.0-35.0); Mean Corpuscular Hemoglobin 26.3 pg (27.0-33.0); Mean Corpuscular Volume 83.8 fL (80.0-98.0); Mean Platelet Volume 10.6 fL (9.4-12.3); Monocytes Absolute Auto 0.4 X10*3/uL (0.1-1.2); Monocytes Percent Auto 5.3 % (2-11); Neutrophils Absolute Auto 5.4 x10*3/uL (2.0-8.3); Neutrophils Percent Auto 76.3 % (45-73); Platelet Count 142 X10*3/uL (160-400); Red Cell Distribution Width 17.2 % (11.0-16.0)
[2024-04-17 13:04] LABS: Acetaminophen LAB < 3 mcg/mL (<30); Alanine Aminotransferase 13 U/L (0-31); Albumin Level 4.1 g/dL (3.5-5.0); Alkaline Phosphatase 58 U/L (39-117); Anion Gap 12 (12-20); Aspartate Amino Transferase 24 U/L (5-31); Bilirubin Total 0.8 mg/dL (0.0-1.0); Blood Urea Nitrogen 18 mg/dL (9-16); Calcium 9.8 mg/dL (8.4-10.2); Carbon Dioxide 24 mmol/L (22-29); Chloride 108 mmol/L (96-108); Creatinine Clr Calc Pharmacy 100.3; Estimated Glomerular Filt Rate > 60; Ethanol < 10 mg/dL; Glucose Random 89 mg/dL (60-115); Potassium 3.7 mmol/L (3.3-5.1); Salicylate < 5.0 mg/dL (15-30); Sodium 140 mmol/L (135-145); Total Protein 8.1 g/dL (6.5-8.0)
--- NOTE | 2024-04-17 13:59 | MHC.RECOVRN ---
Attempted to meet with pt x2 to complete SUDE. Pt opens eyes, quickly falls back to sleep. Does not engage or respond to t/w. Will continue to follow.
[2024-04-17 14:33] VITALS: BP 120/78; PULSE 79; RESP 18; TEMP 37; O2SAT 99
[2024-04-17 15:38] VITALS: BP 123/66; PULSE 74; RESP 16; TEMP 36.8; O2SAT 97
[2024-04-17] MEDS: Naloxone HCl Nasal TAKE HOME 4 MG SPRAY 8 MG NOSTRILALT (15:51)
[2024-04-17 15:52] VITALS: BP 123/66; PULSE 74; RESP 16; TEMP 36.8; O2SAT 97
== END 2024-04-17 15:52 | disposition home or self-care (01) ==
PROVIDERS: Physician Assistant; Emergency Provider Emergency Medicine Emergency Medical Services
DX: T40.1X4A Poisoning by heroin, undetermined, initial encounter (principal); Y92.9 Unspecified place or not applicable
CPT/HCPCS: 36415; 80053; 80143; 80179; 80307; 83735; 85025; 99284; 99285

== ENCOUNTER 2025-11-06 17:08 | Emergency (ER) | payer MEDICAID, SELFPAY ==
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
[2025-11-06 17:18] LABS: Glucose, Whole Blood 104 mg/dL (60-115)
[2025-11-06 17:33] VITALS: BP 137/80; BP 95/54; PULSE 68; RESP 18; TEMP 36.5; O2SAT 98; BMI 33.6
--- NOTE | 2025-11-06 17:34 | ED_ITS ---
HPI - Overdose General Chief Complaint: Overdose Stated Complaint: [facility] GIV[facility] PER EMS Time Seen by Provider: 11/06/25 17:31 History of Present Illness HPI Narrative: Patient is a 35-year-old female with a history of polysubstance abuse. History of heroin abuse. Presented today with having altered mental status right outside of [place]. Patient was bending over not very responsive acting a low agitated EMS noted pinpoint pupil got her into the ambulance subsequently patient passed out. Related Data Previous Rx's ?Medication ?Instructions ?Recorded doxycycline monohydrate 100 mg 100 mg PO BID #20 caps 06/19/21 capsule bupropion HCl 150 mg 24 hr tablet, 150 mg PO QAM #14 t abs 03/26/22 extended release clonazepam 1 mg tablet 1 mg PO BID #8 tabs 03/26/22 clonidine HCl 0.1 mg tablet 0.1 mg PO BID #20 tabs 01/16 Allergies Allergy/AdvReac Type Severity Reaction Status Date / Time brompheniramine (From Allergy Anaphylaxis Verified 11/06/25 17:36 Dimetapp (brompheniramine-PPA)) phenylpropanolamine (From Allergy Anaphylaxis Verified 11/06/25 17:36 Dimetapp (brompheniramine-PPA)) PMFSH Past Medical History Medical History Depression Anxiety No known health problems Social History Social History Patient Tobacco Use Status: Current everyday Tobacco user Substance Use Type: Heroin Advance Directives: No Advance Directives Information Provided: No Do you have a plan to hurt others: No Plan Physical Exam Vital Signs: Vital Signs: Last Vital Signs Temp 98.4 F 11/06/25 20:08 Pulse 64 11/06/25 20:08 Resp 18 11/06/25 20:08 BP 104/46 L 11/06/25 20:08 Pulse Ox 96 11/06/25 20:08 O2 Del Method Room Air 11/06/25 20:08 BMI result Body Mass Index 33.6 Medical Decision Making Medical Decision Making MDM Narrative: Patient initially was found agitated. Once she got on the ambulance became unresponsive had pinpoint pupil. Patient was given Narcan with good effects. Became agitated again. Upon arrival in the emergency department patient became unresponsive not breathing we started bagging her. On examination she had pinpoint pupils. We elected to give her Narcan. That woke her up. She became awake alert somewhat combative. Her sugar was normal there is no evidence of hypoglycemia. Patient then started answering questions. Decided not to get additional labs. Monitor patient. Patient has a long previous history of IV drug use. I watched her for extended period of time given the history of IV drug use given history of unresponsiveness apnea. After 3 hours patient is awake alert [place] breakfast. Will discharge patient home. Offered patient detox. Offered patient Narcan. Differential Diagnosis Differential Diagnoses: The differential diagnosis associated with the presentation includes Polysubstance abuse, hypoglycemia Admission/Observation Consideration of admission/observation: Escalation of care including admission/observation considered Lab Data MDM Lab Attestation statement: I reviewed the patient's lab results. Labs: Lab Results 11/06/25 Range/Units 17:14 POC Glucose 104 (60-115) mg/dL External Record Review Previous office record Prescription Management Consider giving patient Narcan Chronic Conditions History of chronic substance abuse Social Determinants Patient?s care significantly limited by Social Determinants of Health including: Problems related to primary support group Critical Care Time Critical Care Time Critical Care Time: Yes Total Critical Care Time: 35 Attestation: I have personally provided 35 minutes of critical care time exclusive of time spent on separately billable procedures. ?Time includes review of lab data, radiology results, discussion with consultants, and monitoring for potential decompensation. ?Interventions were performed as documented above Discharge Plan Discharge Clinical Impression: Drug overdose Patient Disposition: Home, Self-Care Instructions: Adult Overdose (ED) Additional Instructions: Overdose You were seen in our Emergency Department for an overdose today. You received narcan in order to reverse the effects of overdose. Narcan only lasts about 45 min to 1 hour in the system. You may have been given narcan to take home with you today, please keep it near you if you are going to use again, so others can use it if needed.? The number one risk for fatal overdose is using alone? [facility] is a 24/7 hotline where you can be on the phone with someone while you use, and they can call for help if they suspect an overdose: [phone] Things to look out for when you leave include severe vomiting or diarrhea, he adaches, muscle cramps, fever, coughing, chest pain, or if you feel so short of breath you cannot walk to the bathroom. Please seek care and return any time for worsening symptoms.? You may have been provided with safer injection?items, please take time to take care of YOU and your health. Use new supplies whenever possible to lessen the chances of infections and other illnesses.? If you need more supplies, please go [facility],? [address] [place] [address] OR you can call or text to coordinate delivery of safer supplies. If you decide you want to stop or cut down on how much you?re using, please call the numbers on the list provided to you or you can come to our outpatient Addiction Treatment office [facility] (M-F 9am-5p) [address] [place] [address], [address] [place], [place]. [phone] Prescriptions: No Action doxycycline monohydrate 100 mg capsule 100 mg PO BID Qty: 20 0RF clonidine HCl 0.1 mg tablet 0.1 mg PO BID Qty: 20 0RF Rx Instructions: Patient can partially filled upon request clonazepam 1 mg tablet 1 mg PO BID Qty: 8 0RF Rx Instructions: patient can partially filled upon request bupropion HCl 150 mg tablet extended release 24 hr 150 mg PO QAM Qty: 14 0RF Rx Instructions: patient can partially filled upon request Referrals: Physician,Unknown J [Primary Care Provider, Medical] - 11/09/25 Print Language: Tamazight
[2025-11-06 17:41] VITALS: BP 95/54; PULSE 68; RESP 18; TEMP 36.5; O2SAT 98
--- NOTE | 2025-11-06 17:47 | PC.NURSE ---
Pt comes to ED via EMS from [facility] after being found by PD on the ground with a hunched over posture. She was alert but drowsy with unsteady gait and pinned pupils; high suspicion for opiate use. Per EMS, Pt alert at the beginning of transport but during transport became unconscious and required narcan IN x2. On arrival to ED, Pt is initially unresponsive therefore Narcan given IN. Pt becomes alert but drowsy s/p Narcan. She maintain alertness to name and light stimuli. She is combative and resistive to care. She frequently removes medical equipment and pulls away from staff attempting to given care. VSS Pt is able to maintain O2 sat in upper 90's on RA. She is unwilling to report what substances she may have taken and frequently demands to leave. Pt does fall asleep without constant stimulation but maintains appropriate O2 sats. Pt continues to be combative with staff despite verbal reassurance and encouragement. She pulls way from staff and medical equipment. Multiple staff nurse icu resource team attempt to place IV access and obtain blood work with no success d/t Pt combative behavior. Discussed with Dr. Dockery re: inability to obtain IV access and blood work. Per Dr. Dockery, hold on IV access and blood work at this time. Pt is to be monitored via tele and O2 sat and allowed to rest at this time. Can reattempt blood work and IV access at later time when Pt is more alert and cooperative. Pt on cardiac surgeon and O2 sat in place for monitoring purposes. Pt arrives with a medium sized purse, 2 jackets, 1 sweater, and a head band. These items were removed from the room and locked in the [employer] shelf 2. These items were not searched by security at this time. Pt not changed over at this time d/t combative behavior. on call pharmacy technician aware and agrees with this plan.
--- OUTSIDE RECORDS SUMMARY | 2025-11-06 18:10 | XMS_ITS | Clinical Summary ---
Author Organization [facility] Address [address] [place] [address] Care Team Providers Care Campaign Director Name Role Phone Unavailable Primary Care Provider Unavailabl e Active Problems Problem Noted Date Diagnosed Date Opioid dependence 08/11/2025 Encounters Date Type Department Care Team Description 10/12/2025 Telephone [facility] [address] [place] [address] Jill Virk MA CHARTPREP 10/06/2025 Patient Outreach [facility] [address] [place], [place] [phone] Sriram Roblero MD Pre-visit Planning (SDOH unable to complete ) 08/27/2025 Population Health Risk Score [facility] ([facility]) Department [address] [facility] [address] [place] [id number] Provider, Population Health Generic 08/10/2025 Telephone [facility] [address] [place], [place] [phone] Marilou Rush MD CHART PREP from Last 3 Months Immunizations Immunization Administration Dates Next Due Moderna Covid-19 Vaccine 12+ 03/21/2022 Moderna Covid-19 Vaccine 6+ Bivalent 01/24/2023 SARS-CoV-2, Unspecified 04/06/2021 Social History Tobacco Use Types Packs/Day Years Used Date Smoking Tobacco: Never Assessed Comments Unknown Sex and Gender Information Value Date Recorded Sex Assigned at Female 01/24/2023 3:17 PM EST Legal Sex Female 3:10 PM EST Gender Identity Female 01/24/2023 3:17 PM EST Sexual Orientation Straight 01/24/2023 3: 17 PM EST Plan of Treatment Health Maintenance Due Date Last Done Comments Depression Screening 1992 HIV Screening 1992 SDOH Screening 1992 Disability Screening 1992 Alcohol/Substance Use Screening 2004 Tobacco Screening 2004 Family Planning (PISQ) 2007 HPV Vaccines (1 - 3-dose series) 2007 Hepatitis C Screening 2010 Hepatitis B Vaccines (1 of 3 - 19+ 3-dose series) 2011 Pap Smear 2013 Cervical Cancer Screening 2022 HPV/Cotest 2022 COVID-19 Vaccine ( season) 2025 01/24/2023, 03/21/2022, 03/01/2022, Additional history exists Influenza Vaccine (#1) 2025 DTaP/Tdap/Td Vaccines (2 - Td or Tdap) 06/22/2032 06/22/2022 Zoster Vaccines (1 of 2) 2042 RSV Patients and Patients Aged 60 years or older (1 - 1-dose 75+ series) 2067 HIB Vaccines Aged Out No longer eligi ble based on patient's age to complete this topic Hepatitis A Vaccines Aged Out No long er eligible based on patient's age to complete this topic IPV Vaccines Aged Out No longer eligi ble based on patient's age to complete this topic Meningococcal B Vaccine Aged Out No l onger eligible based on patient's age to complete this topic Meningococcal Vaccine Aged Out No mikel karen eligible based on patient's age to complete this topic Pneumococcal Vaccine: Pediatrics (0 to 5 Years) and At-Risk Patients (6 to 49) Years Aged Out No longer eligible based on patient's age to complete this topic RSV under 20 months Aged Out No longe r eligible based on patient's age to complete this topic Rotavirus Vaccines Aged Out No longer eligible based on patient's age to complete this topic Insurance [employer] C[employer]
[2025-11-06 18:13] VITALS: PULSE 67; O2SAT 95
--- NOTE | 2025-11-06 19:55 | PC.NURSE ---
pt ambulated to and from the bathroom. Refusing any labs and not answering any questions.
[2025-11-06 20:08] VITALS: BP 104/46; PULSE 64; RESP 18; TEMP 36.9; O2SAT 96
--- NOTE | 2025-11-06 21:22 | PC.NURSE ---
pt refused discharge vitals.
[2025-11-06] MEDS: Naloxone HCl Nasal TAKE HOME 4 MG SPRAY 8 MG NOSTRILALT (21:24)
--- NOTE | 2025-11-06 21:25 | PC.NURSE ---
RN gave pt take home narcan.
[2025-11-06 22:57] VITALS: BP 110/66; PULSE 66; TEMP 36.7; O2SAT 96
[2025-11-06 23:46] VITALS: BP 120/77; PULSE 85; RESP 16; TEMP 36.7; O2SAT 98
[2025-11-07 00:51] VITALS: BP 120/77; PULSE 85; RESP 16; TEMP 36.7; O2SAT 98
== END 2025-11-07 00:51 | disposition home or self-care (01) ==
PROVIDERS: Emergency Provider Emergency Medicine Emergency Medical Services
DX: T50.901A Poisoning by unspecified drugs, medicaments and biological substances, accidental (unintentional), initial encounter (principal); R45.1 Restlessness and agitation; Y92.488 Other paved roadways as the place of occurrence of the external cause
CPT/HCPCS: 82947; 99284